=== PATIENT | male | born 1955 | race Two or more races ===

== ENCOUNTER 2020-09-30 06:12 | Day surgery (SDC) | payer OTHER ==
[2020-09-28 13:40] LABS: COVID AG,FIA SOURCE NASOPHARYNGEAL
[~2020-09-30] VITALS: Ht 175.3 cm; Wt 88.6 kg
[2020-09-30] MEDS ORDERED: LIDOCAINE 2% 30 ML JELLY TP ONE (06:13)
[2020-09-30] MEDS ORDERED: BENZOCAINE 20% 50 MCG/SPRAY 57 GM TP ONE (06:13)
[2020-09-30] MEDS ORDERED: LIDOCAINE 4% 50 ML SOLUTION TP ONE (06:13)
[2020-09-30] MEDS ORDERED: ALBUTEROL SULFATE 2.5 MG/0.5 ML NEB SOLUTION NEB ONE (06:13)
[2020-09-30] MEDS ORDERED: SODIUM CHLORIDE 0.9% 1,000 ML IV ONE (06:30)
[2020-09-30] MEDS ORDERED: SODIUM CHLORIDE 0.9% 1,000 ML ONE (06:57)
[2020-09-30] MEDS ORDERED: MIDAZOLAM HCL 2 MG/2 ML VIAL ONE (07:26)
[2020-09-30] MEDS ORDERED: FentaNYL CITRATE PF 100 MCG/2 ML VIAL ONE (07:26)
[2020-09-30] MEDS ORDERED: MethylPREDNISolone SOD SUCC 125 MG/2 ML VIAL ONE (09:00)
[2020-09-30] MEDS ORDERED: MethylPREDNISolone SOD SUCC 125 MG/2 ML VIAL IVP ONE (09:00)
[2020-09-30] MEDS ORDERED: OXYGEN THERAPY IH SCH (20:00)
== END 2020-09-30 10:35 | disposition home or self-care (01) ==
LOC: SURGERY 06:12
PROVIDERS: ATTEND Internal Medicine Critical Care Medicine
DX: B37.0 Candidal stomatitis (principal); J38.4 Edema of larynx; Z91.041 Radiographic dye allergy status; Z90.49 Acquired absence of other specified parts of digestive tract; Z98.890 Other specified postprocedural states; Z20.822 Contact with and (suspected) exposure to COVID-19
CPT/HCPCS: 31623; 31624; 71045; 87015; 87070; 87101; 87205; 87206; 87220; 87426; 88108; 88184; 88185; 88312; C9803; J2250; J2930; J3010; J7030; J7613; Z7610

== ENCOUNTER 2023-09-16 06:47 | Day surgery (SDC) | payer OTHER ==
[~2023-09-16] VITALS: Ht 185.4 cm; Wt 88.6 kg
[2023-09-16] MEDS ORDERED: MIDAZOLAM HCL 2 MG/2 ML VIAL ONE (07:27)
[2023-09-16] MEDS ORDERED: FentaNYL CITRATE PF 100 MCG/2 ML VIAL ONE (07:27)
[2023-09-16] MEDS ORDERED: ALBU10.7 NASAL (07:30)
[2023-09-16] MEDS ORDERED: FAMO20TA8 PO (07:30)
[2023-09-16] MEDS ORDERED: FLUT1DIS26 PO (07:30)
[2023-09-16] MEDS ORDERED: ESCI-8 PO (07:30)
[2023-09-16] MEDS ORDERED: MONT-40 PO (07:30)
[2023-09-16] MEDS ORDERED: AZIT-103 PO (07:31)
[2023-09-16] MEDS ORDERED: SODIUM CHLORIDE 0.9% 1,000 ML ONE (07:46)
[2023-09-16] MEDS: SODIUM CHLORIDE 0.9% 1,000 ML IV ONE (08:11)
[2023-09-16 09:30] VITALS: PULSE 66; RESP 18; O2SAT 95
[2023-09-16] MEDS ORDERED: MethylPREDNISolone SOD SUCC 125 MG/2 ML VIAL ONE (10:05)
[2023-09-16] MEDS: MethylPREDNISolone SOD SUCC 125 MG/2 ML VIAL IVP ONE (10:08)
[2023-09-16] MEDS ORDERED: ALBUTEROL SULFATE 2.5 MG/0.5 ML NEB SOLUTION NEB ONE (16:51)
[2023-09-16] MEDS ORDERED: BENZOCAINE 20% 50 MCG/SPRAY 57 GM ONE (16:52)
[2023-09-16] MEDS ORDERED: LIDOCAINE 4% 50 ML SOLUTION ONE (16:53)
[2023-09-16] MEDS ORDERED: LIDOCAINE 2% 11 ML JELLY ONE (16:53)
== END 2023-09-16 11:50 | disposition home or self-care (01) ==
LOC: SURGERY 06:47
PROVIDERS: ATTEND Internal Medicine Critical Care Medicine
DX: R05.3 Chronic cough (principal); R06.2 Wheezing; J38.4 Edema of larynx; B37.0 Candidal stomatitis; R91.1 Solitary pulmonary nodule; R91.8 Other nonspecific abnormal finding of lung field; J98.09 Other diseases of bronchus, not elsewhere classified; J98.8 Other specified respiratory disorders; J84.10 Pulmonary fibrosis, unspecified; J43.9 Emphysema, unspecified
CPT/HCPCS: 87206; 87101; 87220; 87070; 88108; 31623; 31624; 71045; 87015; J3010; J2250; J2930; Q9967; J7030; J7613; Z7610